=== PATIENT | female | born 2000 | race Caucasian/White ===

== ENCOUNTER 2019-04-09 | Emergency (ER) | payer OTHER ==
[~2019-04-09] VITALS: Ht 165.1 cm; Wt 94.3 kg
[2019-04-09 00:13] VITALS: Ht 165.1 cm; Wt 94.3 kg
[2019-04-09 01:35] VITALS: BP 107/64
== END 2019-04-09 01:35 | disposition home or self-care (01) ==
LOC: ED
DX: R07.81 Pleurodynia (principal); M54.6 Pain in thoracic spine; R19.7 Diarrhea, unspecified; J45.909 Unspecified asthma, uncomplicated